=== PATIENT | male | born 1995 | race Caucasian/White ===

== ENCOUNTER 2020-01-31 05:56 | Emergency (ER) | payer OTHER ==
[2020-01-31] MEDS ORDERED: Metoclopramide 10 MG/2 ML SDV IVPUSH ONE (06:07)
[2020-01-31] MEDS ORDERED: HYDROmorphone 0.5 MG/0.5 ML Syringe IVPUSH ONE (06:07)
--- NOTE | 2020-01-31 06:11 | EDM.PDOC ---
ED HPI GENERAL MEDICAL PROBLEM - General Chief Complaint: Flank Pain Stated Complaint: KIDNEY PAIN Time Seen by Provider: 01/31/20 06:06 Source of Information: Reports: Patient History Limitations: Reports: No Limitations - History of Present Illness INITIAL COMMENTS - FREE TEXT/NARRATIVE: 24-year-old male presents to the ED with acute onset of right flank pain rating down towards the right groin and testicle. Patient awoke with pain about 0430 hrs. Associated nausea without vomiting. Had a normal bowel movement this morning. Has a constant leaking of need to void. No previous history of renal colic. No family history of renal stones to his knowledge. No history of any abdominal surgery Onset: Today, Sudden Onset Date: 01/31/20 Onset Time: 04:30 Duration: Hour(s):, Getting Worse Location: Reports: Abdomen (And upper quadrant of the abdomen rating down towards the right groin.), Back (Acute right flank pain rating towards the right groin.) Quality: Reports: Ache, Sharp, Stabbing, Other (With a strong colicky component.) Improves with: Reports: None Worsens with: Reports: None Context: Reports: Other (Awoke with acute onset of right flank pain rating down towards his right groin.). Denies: Activity, Exercise, Lifting, Sick Contact, Trauma Associated Symptoms: Reports: Nausea/Vomiting (Nausea without vomiting.) Treatments CONTINUITY TESTER: Reports: Other (see below) (None.) Right Flank Pain Score (Numeric/FACES): 8 - Related Data Allergies Allergy/AdvReac Type Severity Reaction Status Date / Time No Known Allergies Allergy Verified 01/31/20 06:01 Home Meds: Home Meds Montelukast [Singulair] 10 mg PO DAILY 01/31/20 [History] Ondansetron [Zofran] 4 mg BUCCAL Q6H PRN #5 tab 01/31/20 [Rx] oxyCODONE HCl/Acetaminophen [Percocet 5-325 mg Tablet] 1 - 2 each PO Q4H PRN #14 tablet 01/31/20 [Rx] Social & Family History - Living Situation & Occupation Occupation: Employed ED ROS GENERAL - Review of Systems Review Of Systems: See Below Constitutional: Reports: No Symptoms HEENT: Reports: No Symptoms Respiratory: Reports: No Symptoms Cardiovascular: Reports: No Symptoms Endocrine: Reports: No Symptoms GI/Abdominal: Reports: No Symptoms : Reports: No Symptoms Musculoskeletal: Reports: No Symptoms Skin: Reports: No Symptoms Neurological: Reports: No Symptoms Psychiatric: Reports: No Symptoms Hematologic/Lymphatic: Reports: No Symptoms Immunologic: Reports: No Symptoms ED EXAM, RENAL/ - Physical Exam Exam: See Below Exam Limited By: No Limitations General Appearance: Alert, WD/WN, Moderate Distress, Other (Patient is slightly pallid and diffusely diaphoretic. Temperature is 36.4 with a heart rate of 59 and sinus respiratory to 17 with O2 sats of 100% room air BP is 137/76.) Respiratory/Chest: No Respiratory Distress, Lungs Clear, Normal Breath Sounds, No Accessory Muscle Use Cardiovascular: Normal Peripheral Pulses, Regular Rate, Rhythm, No Edema, No Gallop, No Murmur, No Rub GI/Abdominal: Soft, Non-Tender, No Organomegaly, No Abnormal Bruit, No Mass, Pelvis Stable, Abnormal Bowel Sounds (All sounds are very quiesced sent throughout all 4 quadrants.) (Male) Exam: No Hernia Back Exam: Normal Inspection, Full Range of Motion. No: CVA Tenderness (L), CVA Tenderness (R) Extremities: Normal Inspection, Normal Range of Motion, Non-Tender, No Pedal Edema Neurological: Alert, Oriented, CN II-XII Intact, Normal Cognition Psychiatric: Normal Affect (Slight pallor.), Normal Mood Skin Exam: No Rash, Cool, Diaphoretic, Pallor Course - Vital Signs Last Recorded V/S: Last Vital Signs Temp 36.4 C 01/31/20 06:00 Pulse 59 L 01/31/20 06:00 Resp 17 01/31/20 06:00 BP 137/76 01/31/20 06:00 Pulse Ox 100 01/31/20 06:00 - Orders/Labs/Meds Labs: Laboratory Tests 01/31/20 Range/Units 06:15 Urine Color Light yellow (Yellow) Urine Appearance Clear (Clear) Urine pH 5.5 (5.0-8.0) Ur Specific [place] > or = 1.030 (1.005-1.030) Urine Protein Negative (Negative) Urine Glucose (UA) Negative (Negative) Urine Ketones Negative (Negative) Urine Occult Blood Negative (Negative) Urine Nitrite Negative (Negative) Urine Bilirubin Negative (Negative) Urine Urobilinogen 0.2 (0.2-1.0) Ur Leukocyte Esterase Negative (Negative) Urine RBC 0-5 (0-5) /hpf Urine WBC 0-5 (0-5) /hpf Ur Squamous Epith Cells 0-5 (0-5) /hpf Amorphous Sediment Moderate H (NOT SEEN) /hpf Urine Bacteria Few (FEW) /hpf Urine Mucus Few (FEW) /hpf Meds: Medications Discontinued Medications Generic Name Dose Route Start Last Admin Trade Name Velia PRN Reason Stop Dose Admin Hydromorphone HCl 0.5 mg 01/31/20 06:07 01/31/20 06:21 Dilaudid IVPUSH 01/31/20 06:08 0.5 mg ONETIME ONE Administration Sodium Chloride 1,000 mls @ 150 mls/hr 01/31/20 06:15 01/31/20 06:17 Normal Saline IV 150 mls/hr ASDIRECTED LOVE Administration Ketorolac Tromethamine 30 mg 01/31/20 06:15 01/31/20 06:19 Toradol IVPUSH 30 mg ONETIME LOVE Administration Metoclopramide HCl 7.5 mg 01/31/20 06:07 01/31/20 06:17 Reglan IVPUSH 01/31/20 06:08 7.5 mg ONETIME ONE Administration - Radiology Interpretation Free Text/Narrative:: 24-year-old male presents to the ED with acute onset of right flank pain rating down towards his right groin. Patient awoke with pain about an hour and a half prior to coming to the ED. Associated nausea without vomiting. Clinically has signs symptoms of acute renal colic on the right side. No past history of renal stones. Benign abdominal examination. Plan IV normal saline at 150 mils per hour. Given Dilaudid 0.5 mg IV with Reglan 7.5 mg IV and Toradol 30 mg IV for acute pain and nausea relief. He will have a urinalysis performed if urine becomes available. CT abdomen per renal protocol - Re-Assessments/Exams Free Text/Narrative Re-Assessment/Exam: 01/31/20 06:49 CT of the abdomen done per renal protocol. Visualized portions of the lungs are normal. Cardiac silhouette appears normal. There is a small hiatal hernia evident. The abdomen shows a normal liver with normal homogeneity and no intraductal dilatation. Gallbladder is present with no stones. Pancreas appears normal spleen appears normal. There is mildly increased stool throughout the right hemicolon. There is very minimal hydronephrosis of the right kidney. Similarly there is a right hydroureter down to the renal pelvis approximately 4 cm above the urinary bladder UVJ. This is due to a small obstructing 2.5 mm stone. Left kidney appears normal. No renal parenchyma stones identified either kidney. There is a moderate sized cyst on the superior pole of the right kidney. Patient's pain is currently much improved with the medication. 01/31/20 06:51 Urinalysis is negative for any signs of infection. Moderate amorphous sediment present. patine will be discharged to home with pain meds Percocet 5/325mg 1-2 every 4hrs if needed for pain relief. Zofran 4mg s/l Q4hrs prn for nausea.Urinary sieve to strain urine until stone has identified to have passed. Departure - Departure Time of Disposition: 07:13 Disposition: Home, Self-Care 01 Condition: Fair Clinical Impression: Renal colic on right side - Discharge Information *PRESCRIPTION DRUG MONITORING PROGRAM REVIEWED*: Not Applicable *COPY OF PRESCRIPTION DRUG MONITORING REPORT IN PATIENT CYNDI: Not Applicable Prescriptions: oxyCODONE HCl/Acetaminophen [Percocet 5-325 mg Tablet] 1 - 2 each PO Q4H PRN #14 tablet PRN Reason: pain relief. Ondansetron [Zofran] 4 mg BUCCAL Q6H PRN #5 tab PRN Reason: nausea or vomiting Instructions: Renal Colic, [id number] Referrals: PCP,None [Primary Care Provider] - Forms: ED Department Discharge Additional Instructions: [facility] in the emergency room this morning in regards to acute onset of right flank pain with right upper abdominal pain rating down towards the right groin. This awoke her from sleep at approximately 0430 hrs. this morning. Associated nausea with no vomiting. Associated feeling of need to void or pass her urine fr equently. Evaluation is compatible with a kidney stone on the right side. CT confirmed a 2.5 mm stone on the right side approximately 4 cm above the urinary bladder. Once the stone passes through the lower portion of the ureter and into the bladder pain will go away. This is likely to occur today or tomorrow. Treatment is to drink plenty of fluids today. May use pain medicine Percocet 5/325 mg 1 or 2 every 4-6 hours necessary for pain relief. You can also take Motrin 600 mg every 6 hours to relieve pain and inflammation. Zofran 4 mg may be used under the tongue every 4 hours as necessary for nausea relief. Suggest straining the urine until identified to have passed the stone. No other stones were identified any of the kidney at this time. Modified diet as we discussed. Sepsis Event Note (ED) - Evaluation Sepsis Screening Result: No Definite Risk
[2020-01-31] MEDS ORDERED: Ketorolac 30 MG/ML SDV IVPUSH SCH (06:15)
[2020-01-31] MEDS ORDERED: Sodium Chloride 0.9% 1,000 ML IV SCH (06:15)
--- NOTE | 2020-01-31 06:58 | CT ---
CT abdomen and pelvis Technique: Multiple axial sections were obtained from above the dome of the diaphragm inferiorly through the pubic symphysis. Intravenous and oral contrast was not utilized. Study has been performed as a ureteral stone protocol. Findings: Right ureter is slightly prominent in size. This finding is caused by a distal right ureteral stone measuring about 2.8 mm. Stone is located within the distal right ureter slightly proximal to the UVJ. No other ureteral calcifications are seen. No renal calculi are seen. Other findings: Visualized lung bases show nothing acute. Liver contains no focal parenchymal abnormality. Spleen appears within normal limits. Adrenal glands show no nodule. Cyst is noted within the upper right kidney measuring 4.3 cm in greatest dimension. Gallbladder contains no calcified gallstones. Pancreas appears within normal limits. Aorta shows no aneurysm. No retroperitoneal adenopathy or mesenteric abnormalities are seen. No pelvic mass or adenopathy is seen. No free fluid or inflammatory change is appreciated. Appendix is seen which is normal in size. Bone window settings were reviewed. No acute osseous finding is appreciated. Impression: 1. Small 2.8 mm obstructing stone is noted within the distal right ureter slightly proximal to the UVJ. 2. No additional renal calculi are seen. 3. Other findings which are nonacute and believed to be incidental as noted above. Diagnostic code #3 This report was dictated in MDT
== END 2020-01-31 07:23 | disposition home or self-care (01) ==
LOC: JD.ED 05:56
DX: N13.2 Hydronephrosis with renal and ureteral calculous obstruction (principal)
CPT/HCPCS: 74176; 81001; 96361; 96374; 96375; 99284; J1170; J1885; J2765; J7030